=== PATIENT | male | born 1990 | race Caucasian/White ===

== ENCOUNTER 2022-10-30 10:06 | Emergency (ER) | payer OTHER ==
[~2022-10-30] VITALS: Ht 182.9 cm; Wt 72.6 kg
--- NOTE | 2022-10-30 10:28 | ED General ---
General Chief Complaint: Neurological Problems Stated Complaint: SEIZURE Source of Information: Patient Exam Limitations: No Limitations History of Present Illness Date Seen by Provider: Oct 30, 2022 Time Seen by Provider: 10:14 Initial Comments 32-year-old male presents to the emergency department today after he had a witnessed seizure. 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 He does have a known seizure disorder, takes Depakote and Keppra. He is postictal upon arrival. Blood sugar in route for EMS was 160. All other systems reviewed and negative except documented per HPI. Voice recognition software was used to help create this chart Allergies and Home Medications Allergies Coded Allergies: No Allergy Information Available (Unverified , 10/30/22) Patient Home Medication List Home Medication List Reviewed: Yes Review of Systems Review of Systems Constitutional: see HPI Physical Exam Vital Signs Vital Signs - First Documented 10/30/22 10:06 Temp 36.1 Pulse 70 Resp 15 B/P (MAP) 104/45 (64) O2 Delivery Room Air Capillary Refill : Height, Weight, BMI Height: '" Weight: lbs. oz. kg; BMI Method: General Appearance: No Apparent Distress, Other (post-ictal, will open his eyes but not responding to questions. ) Eyes: Bilateral Eye Normal Inspection, Bilateral Eye PERRL, Bilateral Eye EOMI HEENT: PERRL/EOMI, Normal ENT Inspection, Pharynx Normal Neck: Full Range of Motion, Supple Respiratory: Chest Non Tender, Lungs Clear, Normal Breath Sounds, No Accessory Muscle Use, No Respiratory Distress Cardiovascular: Regular Rate, Rhythm, No Murmur, Normal Peripheral Pulses Gastrointestinal: Normal Bowel Sounds, No Organomegaly, Non Tender, Soft Extremity: Normal Capillary Refill, Normal Inspection, Normal Range of Motion, Non Tender, No Calf Tenderness Neurologic/Psychiatric: Alert, No Motor/Sensory Deficits, Normal 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, 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 Norm as Tested Skin: Normal Color, Warm/Dry Progress/Results/Core Measures Suspected Sepsis SIRS Temperature: Pulse: Respiratory Rate: Blood Pressure / Mean: Results/Orders My Orders Orders - TG ARMENDARIZ DO Acetaminophen Tablet (Tylenol Tablet) (10/30/22 10:45) Medications Given in ED Current Medications Medications Dose Ordered Sig/Rafael Route Start Time Stop Time Status Last Admin Dose Admin Acetaminophen 1,000 mg ONCE ONCE PO 10/30/22 10:45 10/30/22 10:46 DC 10/30/22 10:50 1,000 MG Vital Signs/I&O 10/30/22 10:06 Temp 36.1 Pulse 70 Resp 15 B/P (MAP) 104/45 (64) O2 Delivery Room Air Capillary Refill : Departure Communication (Admissions) The patient's brother arrives to tells me that he only started to have the seizures about a year ago. 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 No recent changes in his seizure medications. He is alert and oriented back to normal mental baseline and the brother is requesting to take him home so he can rest. He does complain of headache and I gave him some p.o. Tylenol. Impression Primary Impression: Seizure Disposition: 01 HOME, SELF-CARE Condition: Stable Departure-Patient Inst. Patient Instructions: Epilepsy in adults Add. Discharge Instructions: Continue to work with neurology to help better control your seizures. Return to the emergency department for any severe concerns All discharge instructions reviewed with patient and/or family. Voiced understanding. TG ARMENDARIZ DO Oct 30, 2022 10:28
[2022-10-30] MEDS ORDERED: ACETAMINOPHEN 500 MG TAB (TYLENOL) PO ONE (10:45)
[2022-10-30 10:59] VITALS: BP 119/71
== END 2022-10-30 10:59 | disposition home or self-care (01) ==
LOC: ER FS 10:08
DX: G40.909 Epilepsy, unspecified, not intractable, without status epilepticus (principal); Z79.899 Other long term (current) drug therapy